=== PATIENT | male | born 1940 | race Caucasian/White ===

== ENCOUNTER 2018-02-10 18:40 | Emergency (ER) | payer MEDICARE ==
[~2018-02-10 18:40] MED LIST: ASPI81 PO; ATOR20TA42 PO; CLOP75 PO; GLIP10TA13 PO; GLUCTAB PO; LISI10TA PO; METO100T PO
--- NOTE | 2018-02-10 18:52 | PD ---
HPI Chief Complaint: Code Blue Time Seen by Provider: 18:44 Travel History International Travel<30 days: No Contact w/Intl Traveler<30days: No Traveled to known affect area: No History of Present Illness HPI The patient is a 78-year-old male who presents to the emergency department via fire rescue was a code. The patient apparently was found in the passenger seat of his car, parked in the driveway of his house, unresponsive. The patient was last seen normal 15 minutes prior to being found in the car unresponsive. When EMS arrived the patient was in ventricular fibrillation. EMS states they attempted to obtain an airway via intubation and, to but were unsuccessful, the patient was oxygenated via bag valve ventilation. They stated the patient initially was in ventricular fibrillation and received a total of 4 mg of epinephrine and 3 defibrillations prior to arrival as well as 1 amp of bicarbonate. The patient went from ventricular fibrillation to asystole prior to arrival. The patient's downtime was greater than 30 minutes per fire rescue's history. Upon arrival the patient was a GCS of 3 with no spontaneous respirations and no pulse. CPR was being performed with the patient arrived by fire rescue and was immediately instituted by emergency department staff. 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 Social History Alcohol Use: Yes ([facility]) Tobacco Use: No Substance Use: No Allergies-Medications (Allergen,Severity, Reaction): Coded Allergies: No Known Allergies (Verified , 09/20/11) Reported Meds & Prescriptions Reported Meds & Active Scripts Active Reported Lopressor (Metoprolol Tartrate) 100 Mg Tab 100 Mg PO BID Plavix (Clopidogrel Bisulfate) 75 Mg Tab 75 Mg PO DAILY Aspirin 81 Mg Tab 325 Mg PO DAILY Metformin Hcl (Metformin HCl) 500 Mg Tab 500 Mg PO DAILY RESTART ON 09/24 Glipizide Er (Glipizide) 10 Mg Tab 10 Mg PO BID Lipitor (Atorvastatin Calcium) 20 Mg Tab 20 Mg PO DAILY Lisinopril/Hctz 20/25 (HCTZ/Lisinopril) Tab 1 Tab PO DAILY Review of Systems ROS Limitations: Clinical Condition, Unresponsive Physical Exam Exam Limitations: Clinical Condition Narrative GENERAL: 78-year-old male who arrives with CPR and bag valve ventilation being performed. SKIN: Cool and mottled. The patient's upper chest, neck, and face were cyanotic. Pupils are 3 mm bilateral and fixed. HEAD: Atraumatic. Normocephalic. EYES: Pupils equal and round. No scleral icterus. No injection or drainage. ENT: Emesis noted coming from the oropharynx during CPR and bag valve ventilation. NECK: Trachea midline. No JVD. CARDIOVASCULAR: No pulse. Well-healed midline surgical scar. RESPIRATORY: No spontaneous respirations. GASTROINTESTINAL: Abdomen obese, distended. MUSCULOSKELETAL: IO in place right lower leg. NEUROLOGICAL: GCS of 3. PSYCHIATRIC: Unable to obtain. MDM Medical Decision Making Medical Screen Exam Complete: Yes Emergency Medical Condition: Yes Medical Record Reviewed: Yes Differential Diagnosis Differential diagnosis includes cardiopulmonary arrest, arrhythmia, MT, pulmonary embolism, intracranial hemorrhage, hypo-kalemia, hyperkalemia, electrolyte abnormality, aortic dissection. Narrative Course Upon arrival CPR was initially instituted. The patient will had an MP placed by respiratory and bag valve ventilation was continued. The patient had no pulse, therefore, CPR was continued. The patient's downtime was greater than 30 minutes. Bedside ultrasound was performed with a cardiac probe which reveals no cardiac activity. The patient was pronounced at 1846. Nursing staff will attempt to identify the patient's physician so he can be notified and sign the certificate. Critical Care Narrative Aggregate critical care time was 5 minutes. Time to perform other separately billable procedures was not included in the critical care time. My time did not include minutes spent treating any other patients simultaneously or on activities that did not directly contribute to the patient's treatment. The services I provided to this patient were to treat and/or prevent clinically significant deterioration that could result in: Anoxia, hypoxia, aspiration, . I provided critical care services requiring my management, as noted below: Chart data review, documentation time, medication orders and management, vital sign assessments/reviewing monitor data, ordering and reviewing lab tests, ordering and interpreting/reviewing x-rays and diagnostic studies, care of the patient and discussion of the patient with the admitting physicians. Procedures Procedure Narrative A bedside ultrasound was performed with a cardiac probe which reveals no spontaneous cardiac activity. Diagnosis Primary Impression: Cardiopulmonary arrest Disposition: 20 Condition: Sunny Anderson MD Feb 10, 2018 18:52
== END 2018-02-10 18:46 | disposition expired ==
LOC: PHED 18:40
DX: I46.9 Cardiac arrest, cause unspecified (principal); M19.049 Primary osteoarthritis, unspecified hand; M19.079 Primary osteoarthritis, unspecified ankle and foot; E78.00 Pure hypercholesterolemia, unspecified; I11.0 Hypertensive heart disease with heart failure; I50.9 Heart failure, unspecified; E11.9 Type 2 diabetes mellitus without complications; Z79.82 Long term (current) use of aspirin; Z79.02 Long term (current) use of antithrombotics/antiplatelets
CPT/HCPCS: 92950